=== PATIENT | male | born 1945 | race Caucasian/White ===

== ENCOUNTER → 2018-10-02 | Outpatient (CLI) | payer MEDICARE, OTHER | LOC: LAB.O 15:48 | PROVIDERS: ATTEND Family Medicine | DX: D45 Polycythemia vera (principal); D38.1 Neoplasm of uncertain behavior of trachea, bronchus and lung ==

== ENCOUNTER 2018-10-03 07:45 | Emergency (ER) | payer MEDICARE, OTHER ==
[2018-10-03] MEDS ORDERED: SODIUM CHLORIDE 0.9% (FLUSH) 10 ML SYG IV PRN (08:18)
--- NOTE | 2018-10-03 08:36 | RAD ---
EXAM DESCRIPTION: Chest,1 View CLINICAL HISTORY: shortness of breath COMPARISON: Chest radiograph dated September 21, 2018 Findings: Single upright portable frontal view of the chest. Cardiac silhouette shows cardiomegaly. Pulmonary vascularity is within normal limits. There is moderate left-sided pleural effusion, increased compared to September 21, 2018. Suspect trace right-sided pleural effusion. Opacity within the bilateral lower lung zones, left greater than right. These most likely represent atelectasis. There is no pneumothorax. No acute osseous abnormality. Impression: 1. Moderate left-sided pleural effusion, increased compared to September 21, 2018. 2. Suspect trace right-sided pleural effusion. 3. Opacity in the bilateral lower lung zones, left greater than right. These most likely represent atelectasis. Underlying infiltrate cannot be excluded. Electronically signed by: Fredi Ch MD 10/03/2018 8:33 AM CDT
--- NOTE | 2018-10-03 08:38 | ED.PDOC ---
History of Present Illness - General Chief Complaint: Respiratory Problem Time Seen by Provider: 10/03/18 08:18 Source: patient, family Exam Limitations: no limitations - History of Present Illness Initial Comments: CC: ACUTE SOB, L LUNG CRAMPING PAIN ON DEEP INSPIRATION, KNOWN LLL LUNG MASS. PT'S DAUGHTER IS A PA, AT BEDSIDE, WHO IS EXCELLENT HISTORIAN. COMPLEX HISTORY. KNOWN LLL LUNG MASS PER X-RAY (6X4 CM) AND CT (6 CM). PT HAD BX FOR MASS 2 WKS AGO. PATHOLOGY REPORT SHOWS BX OBTAINED BENIGN LUNG TISSUE BUT POSSIBLY NOT THE MASS. PT HAS APPT TODAY IN [email or web address] AT 1:30 PM WITH BAG MACHINE SET UP OPERATOR FOR REPEAT NEEDLE BX. PT HAD BEEN FEELING PRETTY WELL THESE PAST 2 WKS. DROVE 7 HRS TO [place] 1 WK AGO AND DROVE BACK 7 HRS YESTERDAY. YESTERDAY MORNING, STARTING HAVING PAIN IN L CHEST WITH DEEP INSPIRATION. PT IS NOT ON HOME O2, YET HIS DAUGHTER, WHO IS A P.A., NOTICED HIS SATS 88% ON RA, THUS WAS APPROPRIATELY CONCERNED. THUS CAME TO ER THIS AM PT ALSO HAD PNE 2 WKS AGO, SEPTEMBER 14, [place] WITH AZITHROMYCIN AND PREDNISONE, THEN LEVAQUIN. SUCCESSFUL TX AND RESOLUTION AT THAT TIME. Timing/Duration: 7-24 hours Severity: severe Activities at Onset: rest Possible Cause: other - LLL MASS, 7 HR CAR RIDE. Improving Factors: nothing Worsening Factors: nothing Associated Symptoms: chest pain Respiratory Risk Factors: other - LLL LUNG MASS Allergies/Adverse Reactions: Allergies Penicillins Allergy (Verified 09/21/18 20:13) Home Medications: Ambulatory Orders Amlodipine Besylate 5 mg PO DAILY 10/03/18 Atorvastatin Calcium [Lipitor] 80 mg PO DAILY 10/03/18 Losartan Potassium 100 mg PO DAILY 10/03/18 Metoprolol Succinate [Toprol XL] 50 mg PO DAILY 10/03/18 Tamsulosin HCl [Flomax] 1 tablet PO DAILY 10/03/18 predniSONE 10 mg PO DAILY 10/03/18 Review of Systems - Review of Systems Constitutional: States: weakness. Denies: chills, fever EENTM: Denies: ear pain, nose pain, throat pain, mouth pain Respiratory: States: short of breath. Denies: cough, wheezing Cardiology: States: chest pain. Denies: palpitations Gastrointestinal/Abdominal: Denies: abdominal pain, nausea Genitourinary: Denies: dysuria, frequency Musculoskeletal: States: back pain - L SCAPULAR PAIN. Denies: neck pain Skin: Denies: lesions, lumps, rash Neurological: Denies: headache, paresthesia, tingling Endocrine: Denies: excessive sweating, flushing, intolerance to cold, intolerance to heat, unexplained weight loss Hematologic/Lymphatic: Denies: easy bleeding, easy bruising All other Systems: Reviewed and Negative Past Medical History (General) - Patient Medical History Hx Seizures: No Hx Stroke: No Hx Dementia: No Hx Asthma: No Hx of COPD: No Hx Cardiac Disorders: Yes - HYPERLIPIDEMIA Hx Congestive Heart Failure: No Hx Pacemaker: No Hx Hypertension: Yes Hx Thyroid Disease: No Hx Diabetes: No Hx Gastroesophageal Reflux: No Hx Renal Disease: No Hx Cancer: No Hx of HIV: No Hx Hepatitis C: No Hx MRSA: No Surgical History: appendectomy, tonsillectomy - Vaccination History Hx Tetanus, Diphtheria Vaccination: Yes Hx Influenza Vaccination: Yes Hx Pneumococcal Vaccination: Yes - Social History Hx Tobacco Use: Yes Hx Alcohol Use: Yes Family Medical History - Family History Mother Family History: Unknown Physical Exam - Physical Exam General Appearance: Alert, Well Nourished Eyes, Ears, Nose, Throat Exam: PERRL/EOMI, normal ENT inspection, TMs normal, pharynx normal Neck: non-tender, full range of motion, supple, other - NO JVD. NO BRUIT. Respiratory: chest non-tender, lungs clear, no accessory muscle use, respiratory distress - MILD RESPIRATORY DISTRESS IN THAT PT UNABLE TO TAKE DEEP BREATH (PAINFUL). 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 WITH HIS KNOWN LUNG MASS AND RECENT OUTPT ANTIMICROBIAL THERAPY FOR CAP PNE (2 WKS AGO), HE IS AT MILDLY INCREASED RISK OF MRSA AND PSEUDOMONAS, AND IS PEN- ALLERGIC. I WILL START CEFEPIME PLUS AZITHROMYCIN. PT AND DAUGHTER (WHO IS A P.A.) STATE PT IS NOT ALLERGIC TO CEPHALOSPORINS. CBC: WBC 13.5 AND ELEV NEUTS. PT IS ON STEROIDS FOR RECENT PNE. CXR = INCREASED LEFT PLEURAL EFFUSION COMPARED TO PREVIOUS. BL LOWER LOBE OPACITIES. D-DIMER ELEVATED. CT ANGIOGRAM = NO P.E. POS L PLEURAL EFFUSION, HEMOTHORAX VS EMPYEMA. (DIAGNOSTICS WNL OR UNREMARKABLE: EKG, CMP, BNP, CARD ENZ X 1. BCX PENDING.) 10/03/18 10:42 HYPOTENSION (115/71, DROPPED TO 100/67) - [facility] WILL PROVIDE 100 ML IVF OVER 1 HR, WHICH WILL SUPPORT HIS BP BUT NOT WORSEN THE PULMONARY EDEMA. 10/03/18 10:44 10/03/18 10:48 C/O PAIN - TORADOL PT FAILED OUTPT TX 2 WKS AGO FOR CAP PNE. HE NEEDS ADMISSION FOR IV ABX. HE HAS LLL LUNG MASS AND HAS APPT AT 1:[address] PETTIT, PUL, TO PLAN THE LUNG BX IN [place], THUS IT MAKES MOST SENSE TO GET HIM ADMITTED TO [facility] FOR PNE TX AND TO SEE BAG MACHINE SET UP OPERATOR RE: THE SUSPECTED LUNG CA. I SPOKE WITH THE PT AND FAMILY AND THEY ARE HAPPY WITH THIS PLAN OF CARE. 10/03/18 11:42 I SPOKE WITH [facility]. THEY ARE ACCEPTING ADMISSION TO PCU FOR PNE AND WILL CONSULT DR. PETTIT, BAG MACHINE SET UP OPERATOR, TO PLAN THE LUNG BX FOR THE LLL LUNG MASS (SUSPECTED CA). THANK YOU DR. HARTMAN, HOSPITALIST, AND [facility] FOR ACCEPTING FURTHER CARE OF OUR PATIENT. PT IS HEMODYNAMICALLY STABLE AND IS SAFE FOR TRFR VIA AMBULANCE. - EKG/XRAY/CT EKG: Sinus, no ST T wave changes Departure - Departure Clinical Impression: Decreased breath sounds, Weakness generalized, Acute dyspnea, Pleuritic chest pain, Hypoxia, Mass of lower lobe of left lung, Failure of outpatient treatment Febrile Qualifiers: Fever type: unspecified Qualified Code(s): R50.9 - Fever, unspecified Hypotension Qualifiers: Hypotension type: hypotension due to hypovolemia Qualified Code(s): I95.89 - Other hypotension; E86.1 - Hypovolemia Disposition: Transfer to Hospital Condition: Fair Departure Forms: Patient Portal Self Enrollment, ED Discharge - Pt. Copy Referrals: DALI THOMAS PA [Primary Care Provider] - 1-2 Weeks Home Medications: Ambulatory Orders Amlodipine Besylate 5 mg PO DAILY 10/03/18 Atorvastatin Calcium [Lipitor] 80 mg PO DAILY 10/03/18 Losartan Potassium 100 mg PO DAILY 10/03/18 Metoprolol Succinate [Toprol XL] 50 mg PO DAILY 10/03/18 Tamsulosin HCl [Flomax] 1 tablet PO DAILY 10/03/18 predniSONE 10 mg PO DAILY 10/03/18 Transfer to Outside Facility - Transfer Information Accepting Provider:: DR. HARTMAN Accepting Facility: [facility] Reason for Transfer: specialized care not available
[2018-10-03] MEDS ORDERED: MORPHINE SULFATE INJ 10 MG/ML VIAL IV ONE (08:39)
--- NOTE | 2018-10-03 09:53 | CT ---
CT CHEST ANGIOGRAPHY WITH IV CONTRAST HISTORY: 73 years Male ACUTE DYSPNEA; ACUTE HYPOXIA; KNOWN LLL MASS. COMPARISON: September 20, 2018. TECHNIQUE: Helical tomographic images of the chest were obtained after the intravenous administration of 100 cc of Isovue-370 utilizing an angiogram protocol. 3-D MIP reconstructions were created. Coronal and sagittal reformatted images were also provided. This exam was performed according to our departmental dose-optimization program, which includes automated exposure control, adjustment of the mA and/or kV according to patient size and/or use of iterative reconstruction technique. FINDINGS: Diagnostic quality: Suboptimal secondary to motion artifact. Pulmonary embolism: None detected. Pulmonary arteries: Normal caliber and enhancement. Lungs/airways/pleura: Moderate loculated intermediate density left pleural effusion. Moderate atelectasis of the left lower lobe. Heterogeneously enhancing 6 cm lentiform mass lesion is again demonstrated in the posterior aspect of the left lower lobe, similar to prior. Interval change in size is not well assessed secondary to atelectasis. Expected dependent atelectatic changes in the right lower lung. Central airways appear patent Heart/pericardium: Heart size is normal. No significant pericardial fluid detected. Mediastinum/yosef: No mediastinal or hilar mass or lymphadenopathy observed. Systemic vasculature: There are scattered atherosclerotic changes noted. Regional surrounding soft tissues: No acute process detected. Bones: No acute process detected. Included abdomen: Simple appearing 1.7 cm cystic lesion in the right hepatic lobe, unchanged. Subcentimeter hypoattenuating lesion in the left hepatic lobe is too small to adequately characterize but statistically likely represents a benign lesion such as a hepatic cyst or hemangioma. Focal cortical thinning with simple appearing 1.7 cm cyst is demonstrated in the interpolar region of the left kidney. No acute process detected. IMPRESSION: Moderate loculated intermediate density left pleural effusion, most suggestive of hemothorax in the setting of recent prior lung biopsy. Empyema is not excluded in this setting. Redemonstrated left lower lobe pulmonary mass. This is grossly unchanged from prior imaging; however, direct comparison is limited secondary to atelectasis of the left lower lobe. No evidence of a pulmonary embolus. Electronically signed by: Lewis Camargo MD 10/03/2018 9:51 AM CDT
[2018-10-03] MEDS ORDERED: CEFEPIME 1 GM in SODIUM CHLORIDE 0.9% 50ML 50 ML IVPB ONE (10:40)
[2018-10-03] MEDS ORDERED: AZITHROMYCIN IV 500 MG in SODIUM CHLORIDE 0.9% 250ML 250 ML IVPB ONE (10:40)
[2018-10-03] MEDS ORDERED: SODIUM CHLORIDE 0.9% 50ML 50 ML ONE (10:50)
[2018-10-03] MEDS ORDERED: CEFEPIME 2 GM VIAL ONE (10:50)
[2018-10-03] MEDS ORDERED: KETOROLAC TROMETHAMINE INJ 30 MG/ML VIAL IV ONE (10:59)
[2018-10-03] MEDS ORDERED: AZITHROMYCIN IV 500 MG VIAL IVPB ONE (11:21)
[2018-10-03] MEDS ORDERED: SODIUM CHLORIDE 0.9% 250ML 250 ML ONE (11:21)
[2018-10-03 11:27] VITALS: TEMP 100.4
[2018-10-03 11:53] VITALS: BP 104/73; O2SAT 93
== END 2018-10-03 12:05 | disposition short-term general hospital (02) ==
LOC: ER 07:45
DX: R06.00 Dyspnea, unspecified (principal); R07.2 Precordial pain; R91.8 Other nonspecific abnormal finding of lung field; R50.9 Fever, unspecified; I95.89 Other hypotension; E86.1 Hypovolemia; R09.02 Hypoxemia; R53.1 Weakness; I10 Essential (primary) hypertension; E78.5 Hyperlipidemia, unspecified; Z88.0 Allergy status to penicillin; Z87.891 Personal history of nicotine dependence; Z79.899 Other long term (current) drug therapy
CPT/HCPCS: 36415; 71045; 71275; 80053; 82550; 82553; 83880; 84484; 85025; 85379; 87040; 93005; 94760; A4216; J0456; J0692; J1885; J2270; J7050

== ENCOUNTER → 2018-10-27 | Outpatient (CLI) | payer MEDICARE, OTHER | LOC: GMAM 10:29 | PROVIDERS: ATTEND Family Medicine | DX: N18.3 Chronic kidney disease, stage 3 (moderate) (principal) ==

== ENCOUNTER → 2018-11-02 | Outpatient (CLI) | payer MEDICARE, OTHER | LOC: LAB.O 09:33 | PROVIDERS: ATTEND Family Medicine | DX: N18.3 Chronic kidney disease, stage 3 (moderate) (principal) ==

== ENCOUNTER → 2018-12-11 | Outpatient (CLI) | payer MEDICARE, OTHER | LOC: GMAM 10:33 | PROVIDERS: ATTEND Family Medicine | DX: I12.9 Hypertensive chronic kidney disease with stage 1 through stage 4 chronic kidney disease, or unspecified chronic kidney disease (principal); N18.3 Chronic kidney disease, stage 3 (moderate) ==

== ENCOUNTER → 2019-02-07 | Outpatient (CLI) | payer MEDICARE, OTHER | LOC: GMAM 14:11 | PROVIDERS: ATTEND Family Medicine | DX: N18.3 Chronic kidney disease, stage 3 (moderate) (principal) ==

== ENCOUNTER → 2019-02-09 | Outpatient (CLI) | payer MEDICARE, OTHER ==
--- NOTE | 2019-02-09 12:27 | CT ---
EXAM DESCRIPTION: Chest w/o Contrast CLINICAL HISTORY: 74 years, Male, EMPYEMA COMPARISON: Previous chest x-ray October 03, 2018, CTA of the chest four 2018 TECHNIQUE: Thin-section noncontrast axial CT images are obtained according to our protocol. Reconstructed MPR images are created and reviewed as well. FINDINGS: Lungs: Patchy parenchymal densities are seen in the left lower lobe with linear or triangular shaped consistent with scarring or postoperative changes. Left hemithorax is small suggesting previous partial pneumonectomy. Mild subpleural fibrotic changes on the right. No acute appearing infiltrate to suggest pneumonia. No mass to suggest a malignant process. Comparing to the previous CT of the chest (CT angiography October 03, 2018) loculated left pleural effusion is no longer present. Aeration has improved in the left lower lobe. No worrisome pulmonary mass or nodule. Mediastinum: Lymph nodes are normal in size. Normal vascular contours. Heart size is normal with no pericardial effusion. Chest wall/axilla: No mass or adenopathy. Lower neck/supraclavicular: No mass or adenopathy. Thyroid gland appears normal. Upper abdomen: Lesion of the posterior left kidney 2 cm in size has a density of 14 Hounsfield units consistent with a cyst. Left renal scarring is present. Upper pole of the right kidney is unremarkable. Few low-density lesions in the liver are consistent with cysts. Correlate with sono findings. Otherwise unremarkable upper abdominal viscera. Coronal and sagittal reformatted images confirm the findings. IMPRESSION: Linear and triangular densities in the mid and lower left lung most consistent with scarring and surgical changes. Interval drainage of loculated left pleural effusion. This exam was performed according to our departmental dose-optimization program, which includes automated exposure control, adjustment of the mA and/or kV according to patient size and/or use of iterative reconstruction technique. Total DLP equals 864.8 mGycm. Electronically signed by: Evan Buck MD 02/09/2019 12:26 PM CDT
== END ==
LOC: CT 11:18
PROVIDERS: ATTEND Internal Medicine
DX: J86.9 Pyothorax without fistula (principal); R91.8 Other nonspecific abnormal finding of lung field; L02.91 Cutaneous abscess, unspecified; Z98.890 Other specified postprocedural states

== ENCOUNTER → 2019-06-19 | Outpatient (CLI) | payer MEDICARE, OTHER | LOC: GMAM 14:22 | PROVIDERS: ATTEND Family Medicine | DX: Z12.5 Encounter for screening for malignant neoplasm of prostate (principal); I10 Essential (primary) hypertension; N18.3 Chronic kidney disease, stage 3 (moderate) | CPT/HCPCS: 83735; G0103 ==